=== PATIENT | male | born 1950 | race Caucasian/White ===

== ENCOUNTER 2021-09-15 12:36 | Emergency (ER) | payer OTHER ==
[~2021-09-15] VITALS: Ht 182.9 cm; Wt 103.4 kg
[2021-09-15 12:36] VITALS: BP 139/78
[2021-09-15] MEDS ORDERED: MORPHINE SULFATE INJ 2 MG/ML DISP.SYRIN ONE (12:39)
[2021-09-15] MEDS ORDERED: ASPIRIN 81 MG TAB.CHEW ONE (12:39)
--- NOTE | 2021-09-15 12:39 | NUR ---
CALLED [employer] [phone] TO [facility] DIRECTOR OF ENTERTAINMENT [id number] WILL BE SENDING RA 99
--- NOTE | 2021-09-15 12:40 | NUR ---
IV LINE IS ESTABLISHED LINES, BLOOD SPECIMEN COLLECTED AND SENT TO THE LAB. THE LINES ARE SALINE LOCKED.
--- NOTE | 2021-09-15 12:52 | NUR ---
[facility] AT BEDSIDE, WILL TRANSFER PATIENT TO [facility].
--- NOTE | 2021-09-15 12:52 | NUR ---
NO NEED TO GIVEN NITRO PER DR THOMPSON
--- NOTE | 2021-09-15 12:53 | NUR ---
REPORT GIVEN TO [facility]
[2021-09-15] MEDS ORDERED: MORPHINE SULFATE INJ 2 MG/ML DISP.SYRIN IV ONE (13:00)
[2021-09-15] MEDS ORDERED: ASPIRIN 81 MG TAB.CHEW PO ONE (13:00)
== END 2021-09-15 12:57 | disposition home or self-care (01) ==
LOC: ER 12:47
DX: I21.3 ST elevation (STEMI) myocardial infarction of unspecified site (principal); E11.9 Type 2 diabetes mellitus without complications
CPT/HCPCS: 93005; 96374; 99283; J2270